=== PATIENT | female | born 1965 | race American Indian/Alaskan Native ===

== ENCOUNTER 2017-01-09 12:23 | Outpatient (CLI) | payer BC ==
--- NOTE | 2017-01-13 12:08 | Magnetic Resonance Report ---
BILATERAL BREAST MRI WITHOUT AND WITH CONTRAST: 01/09/17 12:23:00 CLINICAL: High risk for breast cancer. Family history of breast cancer and positive for the MSH2 deleterious mutation. Diffuse cystic mastopathy. COMPARISON:12/29/16 screening mammogram.. TECHNIQUE: Axial 1.0-mm T1 without, axial high resolution 2.0-mm T2 and axial 1.0-mm dynamic Vibrant high-resolution postcontrast T1 fat saturation sequences on a 1.5 Alysia magnet. The examination was performed with an 8 channel dedicated [place] breast coil. Post processing with CAD and subtraction was performed on an [employer] workstation. 20 cc of Multihance was injected without incident for the contrast portion of the exam. Consent was obtained prior to the administration of the contrast. FINDINGS: Right: Minimal background parenchymal enhancement. No mass or suspicious enhancement. No detectable cysts on the T2 weighted sequence. No suspicious right axillary or right internal mammary lymph nodes. Left: Minimal background parenchymal enhancement. No mass or suspicious enhancement. No detectable cysts on the T2 weighted sequence. No suspicious left axillary or left internal mammary lymph nodes. IMPRESSION: Normal study. Recommend routine mammographic screening. BI-RADS 1 -- Negative
== END 2017-01-09 12:24 | disposition home or self-care (01) ==
LOC: SPVIMAG 12:23
PROVIDERS: ATTEND Surgery
DX: N60.12 Diffuse cystic mastopathy of left breast (principal); N60.11 Diffuse cystic mastopathy of right breast; Z80.3 Family history of malignant neoplasm of breast
CPT/HCPCS: 0159T; A9577; C8908; 77059